=== PATIENT | male | born 1930 | race Caucasian/White ===

== ENCOUNTER 2017-09-01 11:48 | Emergency (ER) | payer MEDICARE, OTHER ==
[~2017-09-01] VITALS: Ht 175.3 cm; Wt 67.1 kg
[2017-09-01] MEDS ORDERED: CLINDAMYCIN PHOS 600 MG/ 4 ML VIAL IM ONE (13:00)
[2017-09-01 13:24] VITALS: BP 132/78
== END 2017-09-01 13:36 | disposition home or self-care (01) ==
LOC: FSED 11:48
DX: S51.012A Laceration without foreign body of left elbow, initial encounter (principal); L03.114 Cellulitis of left upper limb; I48.91 Unspecified atrial fibrillation
CPT/HCPCS: 80048; 85025; 99283